=== PATIENT | female | born 1940 ===

== ENCOUNTER 2017-06-09 11:33 | Inpatient (IN) | payer OTHER ==
[~2017-06-09] VITALS: Ht 167.6 cm; Wt 72.6 kg
[2017-06-09] MEDS ORDERED: PRADAXA150 MG PO (12:41)
[2017-06-09] MEDS ORDERED: LOSARTAN-HCTZ1 EAC2 PO (12:43)
[2017-06-09] MEDS ORDERED: SIMVASTATIN20 MG PO (12:43)
[2017-06-09] MEDS ORDERED: [UNRECOGNIZED DRUG - OTHER] PO (12:43)
== END 2017-07-04 17:40 | disposition expired | DRG 329 ==
LOC: ICU 06-24 06:30 → O/R 06-24 06:30 → SURH 06-24 07:00 → MEDI 06-25 15:25 → SURH 06-26 15:31 → ICU 06-29 18:23
PROVIDERS: Colon & Rectal Surgery
PROC: 0DJD8ZZ Inspection of Lower Intestinal Tract, Via Natural or Artificial Opening Endoscopic (ICD-10-PCS; 2017-06-24)
PROC: 0DTE4ZZ Resection of Large Intestine, Percutaneous Endoscopic Approach (ICD-10-PCS; principal; 2017-06-24 07:00)
PROC: 4A12X4Z Monitoring of Cardiac Electrical Activity, External Approach (ICD-10-PCS; 2017-06-26)
PROC: B246ZZZ Ultrasonography of Right and Left Heart (ICD-10-PCS; 2017-06-27)
PROC: 3E0F7GC Introduction of Other Therapeutic Substance into Respiratory Tract, Via Natural or Artificial Opening (ICD-10-PCS; 2017-06-27)
PROC: 4A033R1 Measurement of Arterial Saturation, Peripheral, Percutaneous Approach (ICD-10-PCS; 2017-06-27)
PROC: BB24ZZZ Computerized Tomography (CT Scan) of Bilateral Lungs (ICD-10-PCS; 2017-06-29)
PROC: 30233N1 Transfusion of Nonautologous Red Blood Cells into Peripheral Vein, Percutaneous Approach (ICD-10-PCS; 2017-07-01)
PROC: B246ZZZ Ultrasonography of Right and Left Heart (ICD-10-PCS; 2017-07-03)
PROC: 5A1935Z Respiratory Ventilation, Less than 24 Consecutive Hours (ICD-10-PCS; 2017-07-04)
PROC: 0BH17EZ Insertion of Endotracheal Airway into Trachea, Via Natural or Artificial Opening (ICD-10-PCS; 2017-07-04)
DX: K57.32 Diverticulitis of large intestine without perforation or abscess without bleeding (principal); J18.9 Pneumonia, unspecified organism; I21.4 Non-ST elevation (NSTEMI) myocardial infarction; J95.821 Acute postprocedural respiratory failure; T81.12XA Postprocedural septic shock, initial encounter; A41.9 Sepsis, unspecified organism; J44.1 Chronic obstructive pulmonary disease with (acute) exacerbation; J95.89 Other postprocedural complications and disorders of respiratory system, not elsewhere classified; J98.11 Atelectasis; J90 Pleural effusion, not elsewhere classified; I97.191 Other postprocedural cardiac functional disturbances following other surgery; I24.9 Acute ischemic heart disease, unspecified; N17.8 Other acute kidney failure; F05 Delirium due to known physiological condition; T81.4XXA Infection following a procedure, initial encounter; B37.0 Candidal stomatitis; B37.49 Other urogenital candidiasis; K92.1 Melena; I34.0 Nonrheumatic mitral (valve) insufficiency; I48.0 Paroxysmal atrial fibrillation; F17.210 Nicotine dependence, cigarettes, uncomplicated; N99.0 Postprocedural (acute) (chronic) kidney failure; B96.1 Klebsiella pneumoniae [K. pneumoniae] as the cause of diseases classified elsewhere; D50.0 Iron deficiency anemia secondary to blood loss (chronic); Z78.1 Physical restraint status